=== PATIENT | female | born 1975 | race Caucasian/White ===

== ENCOUNTER → 2016-07-24 | Outpatient (CLI) | payer OTHER ==
[~2016-07-24] MED LIST: DEXILANT60 MG PO; ENDOCET 5-3251 EACH PO; FEVERFEW PO; IBUPROFEN800 MG PO; MAGNESIUM250 MG PO; MULTIPLE VITAM1 EAC4 PO; OVCON-351 TAB PO; PRILOSEC40 MG PO; PROAIR HFA8.5 GM IH; RELPAX20 MG PO; SINGULAIR10 MG PO; SKELAXIN800 MG PO; TOPAMAX100 MG PO; TYLENOL WITH C1 EACH PO; VITAMIN B-2100 MG PO; ZYRTEC10 M2 PO
== END | disposition home or self-care (01) ==
LOC: NUC 07:22
DX: R14.0 Abdominal distension (gaseous) (principal)
CPT/HCPCS: 78264; A9541

== ENCOUNTER 2017-09-22 11:23 | Emergency (ER) | payer OTHER ==
[~2017-09-22] VITALS: Ht 172.7 cm; Wt 84.0 kg
[2017-09-22 12:01] LABS: HEMOGLOBIN 15.5 G/DL (11.9-15.5); MCH 30.7 PG (29.0-34.0); MCHC 34.4 G/DL (30.0-36.0); MCV 89.1 FL (83-99); PLATELET COUNT 280 K/uL (156-360); RBC DIS.WIDTH-CV 12.9 % (11.8-14.6); RED BLOOD COUNT 5.05 M/uL (3.80-5.20); WHITE BLOOD COUNT 11.3 K/uL (4.1-10.2)
[2017-09-22 12:10] LABS: CHLORIDE 106 mEq/L (99-109); POTASSIUM 4.4 mEq/L (3.7-5.4); SODIUM 142 mEq/L (136-147)
[2017-09-22 12:11] LABS: GLUCOSE 105 mg/dL (70-99)
[2017-09-22 12:15] LABS: CREATININE 1.2 mg/dL (0.6-1.3); GFR ESTIMATE (CALCULATED) 53 mL/min/
[2017-09-22 12:16] LABS: UREA NITROGEN (BUN) 15 mg/dL (9-23)
[2017-09-22 12:23] LABS: TROP-I INTERPRETATION NEGATIVE; TROPONIN-I < 0.01 ng/mL (0.0-0.30)
[2017-09-22 14:21] LABS: ALBUMIN 4.4 g/dL (3.2-4.8)
[2017-09-22 14:23] LABS: TOTAL PROTEIN 7.7 g/dL (6.4-8.3)
[2017-09-22 14:25] LABS: TOTAL BILIRUBIN 0.6 mg/dL (0.0-1.0)
[2017-09-22 14:26] LABS: ALKALINE PHOSPHATASE 98 IU/L (3-129)
[2017-09-22 14:29] LABS: AST (GOT) 37 IU/L (2-34); DIRECT BILIRUBIN 0.2 mg/dL (0.0-0.3)
[2017-09-22 14:30] LABS: ALT (GPT) 22 IU/L (3-49); LIPASE 39 U/L (1.0-51.0)
[2017-09-22 15:15] LABS: TROP-I INTERPRETATION NEGATIVE; TROPONIN-I < 0.01 ng/mL (0.0-0.30)
[2017-09-22] MEDS ORDERED: NAPROSYN500 MG PO (15:32)
[2017-09-22 15:46] VITALS: BP 123/60
== END 2017-09-22 15:46 | disposition home or self-care (01) ==
LOC: EME 11:23
PROVIDERS: Nurse Practitioner Acute Care
DX: R07.9 Chest pain, unspecified (principal); J45.909 Unspecified asthma, uncomplicated; K21.9 Gastro-esophageal reflux disease without esophagitis; Z87.442 Personal history of urinary calculi; Z90.49 Acquired absence of other specified parts of digestive tract; Z91.040 Latex allergy status; Z88.1 Allergy status to other antibiotic agents
CPT/HCPCS: 71046; 80048; 80076; 83690; 84484; 85027; 93005; 99281; 99284; J7030